=== PATIENT | male | born 1960 | race Two or more races ===

== ENCOUNTER 2022-09-21 10:15 | Outpatient (CLI) | payer MEDICARE, OTHER ==
[2022-09-21 12:00] LABS: HEMATOCRIT 46 % (39-51); HEMOGLOBIN 15.2 g/dL (13.5-17.5); MEAN CORPUSCULAR HGB CONC 33 g/dl (31.0-36.0); MEAN CORPUSCULAR VOLUME 84 fL (80-96); PLATELET COUNT (AUTO) 308 K/uL (150-450); RED BLOOD CELL COUNT(AUTO) 5.47 MIL/uL (4.5-6.0); WHITE BLOOD COUNT (AUTO) 9.8 K/uL (4.3-11.0)
[2022-09-21 12:19] LABS: URINE TOTAL PROTEIN 10.5 mg/dL (0-11.9)
[2022-09-21 12:20] LABS: BILIRUBIN,URINE NEGATIVE (NEGATIVE); COLOR,URINE YELLOW (YELLOW); LEUKOCYTE ESTERASE ,URINE NEGATIVE (NEGATIVE); NITRITE, URINE NEGATIVE (NEGATIVE); PROTEIN,URINE NEGATIVE (NEGATIVE); UGLUCOSE 3+ mg/dL (NEGATIVE); UROBILINOGEN,URINE 0.2 EU/dL (0.2)
[2022-09-21 12:29] LABS: IRON, SERUM 100 ug/dl (50-175); TOTAL IRON BINDING CAPACITY 350 ug/dl (250-450)
[2022-09-21 12:43] LABS: CHOLESTEROL 173 mg/dL (<200); FERRITIN 188 ng/mL (8-388); HDL CHOLESTEROL 27 mg/dL (40-60); LDL 70 mg/dL (0-99); PROSTATE SPECIFIC ANTIGEN SCR 0.88 ng/mL (0.00-4.00); THYROID STIMULATING HORMONE 2.219 uIU/mL (0.358-3.74); TRIGLYCERIDES 440 mg/dL (30-150)
[2022-09-21 12:50] LABS: ALANINE AMINOTRANSFERASE 41 U/L (12-78); ALBUMIN 4.2 g/dL (3.4-5.0); ALKALINE PHOSPHATASE 43 U/L (46-116); ASPARTATE AMINOTRANSFERASE 24 U/L (15-37); BILIRUBIN,TOTAL 0.6 mg/dL (0.2-1.0); CALCIUM, SERUM 9.5 mg/dL (8.5-10.1); CARBON DIOXIDE 24 mmol/L (21-32); CHLORIDE 104 mmol/L (98-107); CREATININE 0.9 mg/dL (0.6-1.3); GLUCOSE 198 mg/dL (74-106); MAGNESIUM 2.1 mg/dL (1.8-2.4); PHOSPHORUS 2.9 mg/dL (2.5-4.9); POTASSIUM 3.8 mmol/L (3.5-5.1); SODIUM SERUM 138 mmol/L (136-145); TOTAL PROTEIN, SERUM 8.2 g/dL (6.4-8.2); UREA NITROGEN, BLOOD 19 mg/dL (7-18)
[2022-09-21 13:28] LABS: FREE T4 (FREE THYROXINE) 1.02 ng/dL (0.76-1.46)
[2022-09-21 13:33] LABS: C-REACTIVE PROTEIN < 0.2 mg/dL (0.0-0.9)
[2022-09-21 14:52] LABS: BACTERIA,URINE None seen /HPF (None Seen); RBC,URINE NONE SEEN /HPF (0-2); SQUAMOUS EPITHELIAL CELL,UR None Seen /HPF (None Seen); WBC,URINE NONE SEEN /HPF (0-3)
[2022-09-21 16:22] LABS: LYMPHOCYTES % (MANUAL) 69 % (16-48); MONOCYTES % (MANUAL) 4 % (0-11.0); NEUTROPHILS % (MANUAL) 27 (42-76)
[2022-09-21 16:43] LABS: BASOPHILS % (AUTO) 0.4 % (0.0-2.0); EOSINOPHILS % (AUTO) 0.3 % (0.0-6.0); LYMPHOCYTES % (AUTO) 50.1 % (20.0-44.0); NEUTROPHILS % (AUTO) 44.2 % (43.0-81.0)
[2022-09-21 16:44] LABS: LYMPHOCYTES # (AUTO) 4.9 K/uL (0.8-4.8); MONOCYTES # (AUTO) 0.5 K/uL (0.1-1.30); NEUTROPHILS # (AUTO) 4.3 K/uL (1.8-8.9)
== END 2022-09-21 23:59 | disposition home or self-care (01) ==
LOC: MSC 10:15
PROVIDERS: ATTEND Internal Medicine
DX: E11.9 Type 2 diabetes mellitus without complications (principal); Z79.4 Long term (current) use of insulin; Z79.84 Long term (current) use of oral hypoglycemic drugs; I10 Essential (primary) hypertension; E78.1 Pure hyperglyceridemia; R56.9 Unspecified convulsions; R62.50 Unspecified lack of expected normal physiological development in childhood; Z79.899 Other long term (current) drug therapy
CPT/HCPCS: 80061; 85025; 87086; 83540; 83735; 83036; 84100; 84153; 85652; 81001; 36415; 84439; 82746; 84443; 82607; 80053; 82728; 86140; 82043; 82570; 84155; 85007; G0463

== ENCOUNTER 2022-09-28 11:15 | Outpatient (CLI) | payer MEDICARE, OTHER | END 2022-09-28 23:59 | disposition home or self-care (01) | LOC: MSC 11:15 | PROVIDERS: ATTEND Internal Medicine | DX: E11.65 Type 2 diabetes mellitus with hyperglycemia (principal); Z79.4 Long term (current) use of insulin; Z79.84 Long term (current) use of oral hypoglycemic drugs; I10 Essential (primary) hypertension; E78.1 Pure hyperglyceridemia; R56.9 Unspecified convulsions; Z79.899 Other long term (current) drug therapy ==

== ENCOUNTER → 2022-11-09 | Outpatient (CLI) | payer MEDICARE, OTHER | END | disposition home or self-care (01) | LOC: MSC 14:00 | PROVIDERS: ATTEND Internal Medicine | DX: E11.65 Type 2 diabetes mellitus with hyperglycemia (principal); Z79.4 Long term (current) use of insulin; Z79.84 Long term (current) use of oral hypoglycemic drugs; I10 Essential (primary) hypertension; E78.1 Pure hyperglyceridemia; R56.9 Unspecified convulsions; Z79.899 Other long term (current) drug therapy ==

== ENCOUNTER 2022-12-16 11:23 | Outpatient (CLI) | payer MEDICARE, OTHER ==
[2022-12-16 12:35] LABS: BASOPHILS % (AUTO) 0.2 % (0.0-2.0); EOSINOPHILS % (AUTO) 0.4 % (0.0-6.0); HEMATOCRIT 49 % (39-51); HEMOGLOBIN 15.9 g/dL (13.5-17.5); LYMPHOCYTES # (AUTO) 5.6 K/uL (0.8-4.8); LYMPHOCYTES % (AUTO) 50.3 % (20.0-44.0); MEAN CORPUSCULAR HGB CONC 33 g/dl (31.0-36.0); MEAN CORPUSCULAR VOLUME 86 fL (80-96); MONOCYTES # (AUTO) 0.5 K/uL (0.1-1.30); MONOCYTES % (AUTO) 4.1 % (2.0-12.0); PLATELET COUNT (AUTO) 331 K/uL (150-450); WHITE BLOOD COUNT (AUTO) 11.2 K/uL (4.3-11.0)
[2022-12-16 12:36] LABS: BILIRUBIN,URINE NEGATIVE (NEGATIVE); COLOR,URINE YELLOW (YELLOW); LEUKOCYTE ESTERASE ,URINE NEGATIVE (NEGATIVE); NITRITE, URINE NEGATIVE (NEGATIVE); PH,URINE 6.5 (5.0-8.0); PROTEIN,URINE NEGATIVE (NEGATIVE); RBC,URINE 0-2 /HPF (0-2); UGLUCOSE 3+ mg/dL (NEGATIVE); UROBILINOGEN,URINE 0.2 EU/dL (0.2); WBC,URINE 0-2 /HPF (0-3)
[2022-12-16 12:37] LABS: BACTERIA,URINE Rare /HPF (None Seen); SQUAMOUS EPITHELIAL CELL,UR Few /HPF (None Seen)
[2022-12-16 12:59] LABS: CHOLESTEROL 130 mg/dL (<200); HDL CHOLESTEROL 37 mg/dL (40-60); LDL 57 mg/dL (0-99); PROSTATE SPECIFIC ANTIGEN SCR 0.88 ng/mL (0.00-4.00); THYROID STIMULATING HORMONE 2.144 uIU/mL (0.358-3.74); TRIGLYCERIDES 247 mg/dL (30-150)
[2022-12-16 13:11] LABS: ALANINE AMINOTRANSFERASE 49 U/L (12-78); ALBUMIN 4.8 g/dL (3.4-5.0); ALKALINE PHOSPHATASE 45 U/L (46-116); ASPARTATE AMINOTRANSFERASE 18 U/L (15-37); BILIRUBIN,TOTAL 0.3 mg/dL (0.2-1.0); CARBON DIOXIDE 26 mmol/L (21-32); CHLORIDE 107 mmol/L (98-107); GLUCOSE 135 mg/dL (74-106); MAGNESIUM 2.1 mg/dL (1.8-2.4); PHOSPHORUS 3.5 mg/dL (2.5-4.9); POTASSIUM 3.8 mmol/L (3.5-5.1); SODIUM SERUM 143 mmol/L (136-145); UREA NITROGEN, BLOOD 18 mg/dL (7-18)
[2022-12-16 13:15] LABS: C-REACTIVE PROTEIN < 0.2 mg/dL (0.0-0.9)
[2022-12-16 13:18] LABS: VALPROIC ACID 37 ug/mL (50-100)
[2022-12-16 14:00] LABS: URINE TOTAL PROTEIN 6.5 mg/dL (0-11.9)
== END 2022-12-16 23:59 | disposition home or self-care (01) ==
LOC: MSC 11:23
PROVIDERS: ATTEND Internal Medicine
DX: E11.9 Type 2 diabetes mellitus without complications (principal); Z79.4 Long term (current) use of insulin; Z79.84 Long term (current) use of oral hypoglycemic drugs; Z79.85 Long-term (current) use of injectable non-insulin antidiabetic drugs; I10 Essential (primary) hypertension; E78.1 Pure hyperglyceridemia; R56.9 Unspecified convulsions; Z79.899 Other long term (current) drug therapy
CPT/HCPCS: 80061; 85025; 83735; 83036; 84100; 84153; 85652; 81001; 84439; 80164; 82746; 84443; 82607; 80053; 86140; 82306; 82043; 84155; G0463; 36415

== ENCOUNTER 2022-12-22 14:00 | Outpatient (CLI) | payer MEDICARE, OTHER | END 2022-12-22 23:59 | disposition home or self-care (01) | LOC: MSC 14:00 | PROVIDERS: ATTEND Internal Medicine | DX: E11.9 Type 2 diabetes mellitus without complications (principal); Z79.4 Long term (current) use of insulin; Z79.85 Long-term (current) use of injectable non-insulin antidiabetic drugs; Z79.84 Long term (current) use of oral hypoglycemic drugs; I10 Essential (primary) hypertension; E78.1 Pure hyperglyceridemia; R56.9 Unspecified convulsions; Z79.899 Other long term (current) drug therapy ==

== ENCOUNTER 2023-02-15 09:38 | Outpatient (CLI) | payer MEDICARE, OTHER ==
[2023-02-15 10:50] LABS: BASOPHILS % (AUTO) 0.3 % (0.0-2.0); EOSINOPHILS % (AUTO) 0.5 % (0.0-6.0); HEMATOCRIT 45 % (39-51); HEMOGLOBIN 15.2 g/dL (13.5-17.5); LYMPHOCYTES # (AUTO) 5.9 K/uL (0.8-4.8); MEAN CORPUSCULAR HGB CONC 34 g/dl (31.0-36.0); MEAN CORPUSCULAR VOLUME 85 fL (80-96); MONOCYTES # (AUTO) 0.5 K/uL (0.1-1.30); MONOCYTES % (AUTO) 4.9 % (2.0-12.0); NEUTROPHILS # (AUTO) 4.4 K/uL (1.8-8.9); NEUTROPHILS % (AUTO) 40.3 % (43.0-81.0); PLATELET COUNT (AUTO) 312 K/uL (150-450); RED BLOOD CELL COUNT(AUTO) 5.37 MIL/uL (4.5-6.0)
[2023-02-15 11:03] LABS: ALANINE AMINOTRANSFERASE 60 U/L (12-78); ALBUMIN 4.3 g/dL (3.4-5.0); ALKALINE PHOSPHATASE 37 U/L (46-116); ASPARTATE AMINOTRANSFERASE 28 U/L (15-37); BILIRUBIN,TOTAL 0.5 mg/dL (0.2-1.0); CARBON DIOXIDE 24 mmol/L (21-32); CHLORIDE 109 mmol/L (98-107); CREATININE 1.1 mg/dL (0.6-1.3); GLUCOSE 165 mg/dL (74-106); PHOSPHORUS 2.8 mg/dL (2.5-4.9); POTASSIUM 4.1 mmol/L (3.5-5.1); SODIUM SERUM 145 mmol/L (136-145); UREA NITROGEN, BLOOD 19 mg/dL (7-18)
[2023-02-15 11:35] LABS: CHOLESTEROL 96 mg/dL (<200); HDL CHOLESTEROL 31 mg/dL (40-60); LDL 47 mg/dL (0-99); TRIGLYCERIDES 170 mg/dL (30-150)
[2023-02-15 12:49] LABS: C-REACTIVE PROTEIN < 0.2 mg/dL (0.0-0.9)
== END 2023-02-15 23:59 | disposition home or self-care (01) ==
LOC: MSC 09:38
PROVIDERS: ATTEND Internal Medicine
DX: E11.65 Type 2 diabetes mellitus with hyperglycemia (principal); Z79.4 Long term (current) use of insulin; Z79.85 Long-term (current) use of injectable non-insulin antidiabetic drugs; Z79.84 Long term (current) use of oral hypoglycemic drugs; E78.1 Pure hyperglyceridemia; R56.9 Unspecified convulsions; Z79.899 Other long term (current) drug therapy
CPT/HCPCS: 80061; 85025; 83735; 83036; 84100; 85652; 36415; 80053; 86140; G0463

== ENCOUNTER → 2023-02-18 | Outpatient (CLI) | payer MEDICARE, OTHER | END | disposition home or self-care (01) | LOC: MSC 14:00 | PROVIDERS: ATTEND Internal Medicine | DX: E11.65 Type 2 diabetes mellitus with hyperglycemia (principal); Z79.4 Long term (current) use of insulin; Z79.85 Long-term (current) use of injectable non-insulin antidiabetic drugs; Z79.84 Long term (current) use of oral hypoglycemic drugs; I10 Essential (primary) hypertension; E78.1 Pure hyperglyceridemia; R56.9 Unspecified convulsions; Z79.899 Other long term (current) drug therapy ==